=== PATIENT | female | born 1945 | race Caucasian/White ===

== ENCOUNTER 2018-04-02 09:12 | Emergency (ER) | payer OTHER ==
[~2018-04-02] VITALS: Ht 165.1 cm; Wt 65.0 kg
[2018-04-02 09:21] VITALS: BP 207/104; PULSE 80; RESP 20; TEMP 98; O2SAT 95
[2018-04-02] MEDS ORDERED: OXYMETAZOLINE HCL 0.05% 15 ML NASAL SPRAY NASAL ONE (09:30)
--- NOTE | 2018-04-02 09:30 | PD ---
HPI Chief Complaint: Nosebleed Time Seen by Provider: 09:16 Travel History International Travel<30 days: No Contact w/Intl Traveler<30days: No Traveled to known affect area: No History of Present Illness HPI Is a 72-year-old woman presents emergency department complaining of nosebleed. She states that she had a tooth pulled on her upper left side, first or second molar, because it was infected. Is about 9 days ago. She had a bone graft. She was placed on clindamycin. She had sutures removed a couple days ago. It has been healing well. Pain is diminished. Started having bleeding from her right nostril today. She had a little bit of some blood tinged clot over the past couple days. No real bleeding for this morning. Bleeding is been persistent since. She is not on any blood thinners. She does have some sinus trouble but not frequent problems with nasal bleeds or bleeding. She otherwise had been feeling generally well. History Past Medical History Medical History: Denies Significant Hx Social History Tobacco Use: No Allergies-Medications (Allergen,Severity, Reaction): Coded Allergies: Antifungal - Imidazole (Verified Allergy, Intermediate, Hives, 04/02/18) Reported Meds & Prescriptions Reported Meds & Active Scripts Active No Active Prescriptions or Reported Medications Review of Systems Except as stated in HPI: all other systems reviewed are Neg Physical Exam Narrative GENERAL: 72-year-old woman, well-appearing, no acute distress. SKIN: Warm and dry. HEENT: Fair amount of bleeding out of the right nare. It is a little bit overflowing in the left, with occlusion or some bleeding from the nasal lacrimal puncta in the right eye. Unable to visualize any direct source of the bleeding. In the mouth, the extracted tooth appears to be well-healing. There is no bleeding from there. CARDIOVASCULAR: Warm and well perfused. RESPIRATORY: Normal rate and effort. MUSCULOSKELETAL: [default value] NEUROLOGICAL: Awake and alert. No gross deficits. Data Data Last Documented VS Vital Signs Date Time Temp Pulse Resp B/P (MAP) Pulse Ox O2 Delivery O2 Flow Rate FiO2 04/02/18 10:31 67 16 175/86 (115) 96 Room Air 04/02/18 09:21 98.0 Orders Orders Oxymetazoline 0.05% [place] [place] (Afrin 0.0 (04/02/18 09:30) Amlodipine (Norvasc) (04/02/18 10:30) Ed Discharge Order (04/02/18 10:55) [facility] Medical Decision Making Medical Screen Exam Complete: Yes Emergency Medical Condition: Yes Differential Diagnosis Epistaxis, bleeding from surgery, sinus bleeding, other Narrative Course Medical decision making 72-year-old woman with epistaxis, about 10 days out from tooth extraction and bone graft on the left. Bleeding seems to be from the right. She is not complaining a lot of the knee facial fullness pain that would suggest bleeding from the sinus although this seems possible. Will try Afrin soaked pledgets and compression to start. May need packing. Will try to reach her oral surgeon as well. FINAL: Jasen patient's dentist. Reviewed the care the provided. Thinks unlikely to be related to his procedure. Patient improved after Afrin and clamping. No recurrence of the bleeding. Still some congestion and fullness. Reviewed discharge instructions. Will send home with the amlodipine prescription. Afrin pledgets as needed. Diagnosis Primary Impression: Epistaxis Additional Impression: Elevated blood pressure reading Patient Instructions: General Instructions Additional Instructions: Take amlodipine as prescribed. If you're nosebleed begins to bleed again, blow your nose to expel any clots. Pinch your nose together at the end. Hold it for a full 15 minutes. After 15 minutes, release of this is still bleeding hold it again for another full 15 minutes. Do this for a total of an hour. If it is still bleeding after that, return to the emergency department. Follow-up with your primary doctor regarding her blood pressure. Return to the emergency department for any new or worsening symptoms. Med/Other Pt SpecificInfo: Prescription(s) given Scripts Amlodipine (Amlodipine) 2.5 Mg Tab 2.5 MG PO DAILY for Blood Pressure Management, #30 TAB 0 Refills Prov: Stewart Samuel MD 04/02/18 Disposition: 01 DISCHARGE HOME Condition: Stable Stewart Samuel MD April 02, 2018 09:30
[2018-04-02] MEDS ORDERED: amLODIPine BESYLATE 5 MG TAB PO ONE (10:30)
[2018-04-02 10:31] VITALS: BP 175/86; PULSE 67; RESP 16; O2SAT 96
[2018-04-02] MEDS ORDERED: AMLO2.5T PO (10:57)
[2018-04-02 11:09] VITALS: BP 203/99; PULSE 69; RESP 14; O2SAT 96
== END 2018-04-02 11:10 | disposition home or self-care (01) ==
LOC: NEPD 09:12
DX: R04.0 Epistaxis (principal); R03.0 Elevated blood-pressure reading, without diagnosis of hypertension
CPT/HCPCS: 30901